=== PATIENT | male | born 1985 | race Caucasian/White ===

== ENCOUNTER 2017-01-17 00:17 | Emergency (ER) | payer OTHER ==
[2017-01-17 00:26] VITALS: RESP 18; TEMP 98.6
[2017-01-17 01:12] VITALS: BP 126/80; PULSE 112; O2SAT 95
[2017-01-17] MEDS ORDERED: SULFAMETHOXAZOLE/TRIMETHOPRI 800/160 MG PO ONE (01:13)
[2017-01-17] MEDS ORDERED: CLINDAMYCIN HYDROCHLORIDE 150 MG CAP PO SCH (01:15)
[2017-01-17] MEDS ORDERED: SULFAMETHOXAZOLE/TRIMETHOPRI 800/160 MG ONE (01:19)
[2017-01-17] MEDS ORDERED: APAP/HYDROCODONE 325/5 TAB PO ONE (01:22)
[2017-01-17] MEDS ORDERED: APAP/HYDROCODONE 325/5 TAB ONE (01:23)
== END 2017-01-17 01:35 | disposition home or self-care (01) | DRG 603 ==
LOC: ED 00:17
DX: L03.113 Cellulitis of right upper limb (principal)
CPT/HCPCS: 73130; 99283